=== PATIENT | female | born 1985 | race Caucasian/White ===

== ENCOUNTER 2016-08-22 16:25 | Emergency (ER) | payer OTHER ==
[~2016-08-22] VITALS: Ht 167.6 cm; Wt 56.7 kg
[2016-08-22 17:27] LABS: CALCIUM 8.5 mg/dL (8.5-10.1); CARBON DIOXIDE 26.5 mmol/L (21-32); CHLORIDE SERUM 105 mmol/L (98-107); CREATININE SERUM 0.7 mg/dL (0.6-1.0); GFR1 > 60 mL/min; GLUCOSE SERUM 83 mg/dL (74-106); POTASSIUM SERUM 3.6 mmol/L (3.5-5.1); SODIUM SERUM 140 mmol/L (136-145)
[2016-08-22 17:31] LABS: ALBUMIN 4.1 g/dL (3.4-5.0); ALKALINE PHOSPHATASE 73 U/L (46-116); ALT/SGPT 14 U/L (14-59); AMYLASE 63 U/L (25-115); AST/SGOT 13 U/L (15-37); BILIRUBIN TOTAL 0.4 mg/dL (0.20-1.00); LIPASE 167 IU/L (73-393); TOTAL PROTEIN, SERUM 7.3 g/dL (6.4-8.2)
[2016-08-22 17:32] LABS: BASOPHIL % 0.7 % (0-2); RED CELL DISTRIBUTION WIDTH 16.1 % (11.5-14.5)
[2016-08-22 17:33] LABS: PLATELET COUNT 139 x10^3mcL (130-400)
[2016-08-22 18:38] VITALS: BP 110/78
== END 2016-08-22 18:38 | disposition home or self-care (01) ==
LOC: ED 16:25
PROVIDERS: Emergency Medicine
DX: R10.13 Epigastric pain (principal)
CPT/HCPCS: 83880; J1885; Q0092